=== PATIENT | female | born 1980 | race Caucasian/White ===

== ENCOUNTER 2020-02-22 00:25 | Outpatient (CLI) | payer OTHER, SELFPAY ==
[2020-02-22 21:19] LABS: SARS-CoV-2 RNA PCR Negative
== END 2020-02-22 00:26 | disposition home or self-care (01) ==
LOC: ANHCOVIDDT 00:25
PROVIDERS: Visit Provider Otolaryngology
DX: Z01.812 Encounter for preprocedural laboratory examination (principal); Z20.828 Contact with and (suspected) exposure to other viral communicable diseases
CPT/HCPCS: 87635; C9803; U0003

== ENCOUNTER 2020-02-25 01:18 | Day surgery (SDC) | payer OTHER, SELFPAY ==
[2020-02-20 09:53] VITALS: BMI 38.2
--- NOTE | 2020-02-24 06:25 | P.HP_ITS ---
History of Present Illness History of Present Illness Consent: Risks, benefits, and alternatives have been discussed and questions answered. Patient agrees to proceed with procedure. Chief complaint: Hypertrophic Tonsils Narrative: Jazmine Quevedo is a 39 year old female [facility] Social History Social History (Updated 02/10/20 @ 11:38 by Selam Glez [facility]) Smoking packs per day: 0.5 Smoking cigarettes per day: 10.0 Years smoked: 20 Smoking pack-years: 10.00 Smoking status: Current every day smoker Tobacco type: cigarettes Second hand tobacco smoke exposure: Yes Alcohol intake: never Substance use: current Substance use type: marijuana Other substance usage details: ONCE A MONTH Spiritual care concerns: No Meds Home Medications and Allergies Home Medications Medication Instructions Recorded Confirmed Type exenatide 10 mcg SUBCUT BID 02/10/20 02/20/20 History levothyroxine 88 mcg tablet 88 mcg PO DAILY 02/10/20 02/20/20 History omeprazole 10 mg capsule,delayed 10 mg PO DAILY 02/10/20 02/20/20 History release ondansetron HCl 4 mg tablet 4 mg PO PRN PRN 02/10/20 02/20/20 History Allergies Allergy/AdvReac Type Severity Reaction Status Date / Time No Known Allergies Allergy Verified 02/20/20 09:35 Exam HENMT: Other: tympanic membranes retracted with fluid nose mild negative serous otitis bilateral
--- NOTE | 2020-02-24 10:24 | WPDANESEPPF ---
Anes - Initial Pre Proc Eval Procedure: Operation Date: 02/25/20 10:00 Proposed Procedures p Tonsillectomy - Brock Groves MD Date/Time: 02/24/20 10:24 Surgeon: Brock Groves MD Pre Op Diagnosis: Hypertrophic Tonsils Patient Data Age: 39 Gender: F Height: 1.7 m Weight: 110.7 kg Allergies Allergy/AdvReac Type Severity Reaction Status Date / Time No Known Allergies Allergy Verified 02/25/20 08:03 Home Medications Medication Instructions Recorded Confirmed Type exenatide 10 mcg SUBCUT BID 02/10/20 02/25/20 History levothyroxine 88 mcg tablet 88 mcg PO DAILY 02/10/20 02/25/20 History omeprazole 10 mg capsule,delayed 10 mg PO DAILY 02/10/20 02/25/20 History release ondansetron HCl 4 mg tablet 4 mg PO PRN PRN 02/10/20 02/25/20 History Patient hx anesthesia problems: none Family hx anesthesia problems: none PMFSH Past Medical History Medical History (Updated 02/24/20 @ 10:36 by Joao Hayes DO) History of pancreatitis since 2009 has had 3x - several stents insterted/removed Hypothyroidism Surgical History Surgical History (Updated 02/24/20 @ 10:35 by Jaoo Hayes DO) History of tubal ligation Social History Social History (Updated 02/10/20 @ 11:38 by Selam Glez CMA) Smoking packs per day: 0.5 Smoking cigarettes per day: 10.0 Years smoked: 20 Smoking pack-years: 10.00 Smoking status: Current every day smoker Tobacco type: cigarettes Second hand tobacco smoke exposure: Yes Alcohol intake: never Substance use: current Substance use type: marijuana Other substance usage details: ONCE A MONTH Living arrangements: with family Spiritual care concerns: No Anes - Eval Final PreProcedure Day of Procedure 02/24/20 10:24 Patient weight: obese Heart: regular rate and rhythm Lungs: clear to auscultation and normal air movement Airway: Mallampati scale class II Neurological: alert and oriented Last oral intake: >/= 8 hours ASA classification: III Emergent: no Anesthetic plan: proceed Anesthesia type and monitoring: general ETT and standard monitoring Informed Consent: The patient's anesthetic plan and its attendant risks and benefits were discussed with the patient/family/POA. Questions were solicited and answers provided to the satisfaction of the patient/family/POA.
[2020-02-25] VITALS (9 sets, daily range): BP systolic 97–168; BP diastolic 47–99; PULSE 52–82; RESP 12–20; TEMP 36.3–36.6; O2SAT 93–100
--- NOTE | 2020-02-25 05:17 | PM.HPGS ---
History of Present Illness History of Present Illness Consent: Risks, benefits, and alternatives have been discussed and questions answered. Patient agrees to proceed with procedure. Chief complaint: Hypertrophic Tonsils Narrative: Jazmine Quevedo is a 39 year old female has a long history of chronic tonsillitis and enlarged tonsils she is to undergo a tonsillectomy Review of Systems Review of Systems: All systems reviewed & are unremarkable except as noted in HPI and below PMFSH Past Medical History Medical History (Updated 02/24/20 @ 10:36 by Joao Hayes DO) History of pancreatitis since 2009 has had 3x - several stents insterted/removed Hypothyroidism Surgical History Surgical History (Updated 02/24/20 @ 10:35 by Joao Hayes DO) History of tubal ligation Social History Social History (Updated 02/10/20 @ 11:38 by Selam Glez CMA) Smoking packs per day: 0.5 Smoking cigarettes per day: 10.0 Years smoked: 20 Smoking pack-years: 10.00 Smoking status: Current every day smoker Tobacco type: cigarettes Second hand tobacco smoke exposure: Yes Alcohol intake: never Substance use: current Substance use type: marijuana Other substance usage details: ONCE A MONTH Living arrangements: with family Spiritual care concerns: No Meds Home Medications and Allergies Home Medications Medication Instructions Recorded Confirmed Type exenatide 10 mcg SUBCUT BID 02/10/20 02/20/20 History levothyroxine 88 mcg tablet 88 mcg PO DAILY 02/10/20 02/20/20 History omeprazole 10 mg capsule,delayed 10 mg PO DAILY 02/10/20 02/20/20 History release ondansetron HCl 4 mg tablet 4 mg PO PRN PRN 02/10/20 02/20/20 History Allergies Allergy/AdvReac Type Severity Reaction Status Date / Time No Known Allergies Allergy Verified 02/20/20 09:35 Assessment and Plan Additional Plan Plan is a tonsillectomy
--- NOTE | 2020-02-25 05:39 | WPDHPUPDATE1 ---
History and Physical Update Update Date/Time: 02/25/20 05:39 History and Physical has been reviewed, including an updated exam of the patient. There are NO changes in the patient's condition. Risks, benefits, and alternatives have been discussed and questions answered. Patient agrees to proceed with procedure.
[2020-02-25] MEDS: LACTATED RINGERS 1,000 ML 30 ML IV CONT (08:31)
[2020-02-25] MEDS: ACETAMINOPHEN 500 MG TABLET 1000 MG PO (08:31)
--- NOTE | 2020-02-25 09:45 | PM.PROC ---
Procedure Note - Detailed Date of procedure: 02/25/20 Pre-op diagnosis: Hypertrophic Tonsils Post-op diagnosis: same Procedure performed: Tonsillectomy Description of procedure: Patient was prepped and draped in usual fashion after induction of anesthesia. The McIvor mouth gag was inserted. The tonsils were removed dissection technique hemostasis was obtained electrocautery. The mouth was inspected for bleeding. When stablized patient was awaken and brought to the recovery room in good condition. Anesthesia: GLMA Surgeon: Brock Groves MD Estimated blood loss (mL): 15 Drains: No Packing: No Pathology: none sent Complications: No immediate complications Condition: stable Disposition: PACU Findings: Chronic tonsils
[2020-02-25] MEDS: fentaNYL CITRATE INJ (*CRX) 100 MCG/2 ML VIAL 25 MCG IV PUSH ×8 (10:02→10:27)
[2020-02-25] MEDS: HYDROmorphone HCL INJ (*CRX) 1 MG/ML SYR 0.5 MG IV PUSH ×4 (10:33→11:26)
== END 2020-02-25 12:05 | disposition home or self-care (01) ==
PROVIDERS: Visit Provider Otolaryngology
PROC: (CPT 42826; principal; 2020-02-25 10:00)
DX: J35.01 Chronic tonsillitis (principal); E03.9 Hypothyroidism, unspecified; F17.210 Nicotine dependence, cigarettes, uncomplicated; E66.9 Obesity, unspecified; Z68.38 Body mass index [BMI] 38.0-38.9, adult
CPT/HCPCS: 42826; 88302; 88304; A9270; J0330; J1100; J1170; J2001; J2250; J2405; J2704; J3010; J7120

== ENCOUNTER 2023-01-12 00:20 | Day surgery (SDC) | payer OTHER, SELFPAY ==
[2023-01-03 14:18] VITALS: BMI 36.0
--- NOTE | 2023-01-03 14:25 | PC.NURSE ---
Report to the Outpatient Waiting Room, entrance under the green pavilion located off [facility], at time 0730 on date 01/12/23. Planned Procedure Time: 0930. Time changes happen often and if your time is changed the preop area will call you the afternoon before. - You and your visitor will be asked to self-screen and do not enter if you have any COVID symptoms. - A mask is optional within the hospital at this time. Patients may have clear liquids (water, carbonated beverages, clear teas, apple juice) until 3 hours prior to surgery with a maximum of 20 ounces. - No food from midnight until time of surgery Take the following medications with a SIP of water the morning of surgery: NONE DO NOT STOP ANY OF YOUR OTHER PRESCRIPTION MEDICATIONS PRIOR TO SURGERY ?EXCEPT THE FOLLOWING Medications to discontinue per physician: VITAMINS/SUPPLEMENTS Date to take last dose: 01/08/23 Please no make-up, nail tajik, hairspray, perfume, deodorant, or body powder the day of surgery. No jewelry (including any body piercings) or valuables the day of surgery, leave them at home. Please take a shower or bath the night before, or the morning of, surgery with an antibacterial soap. Wear comfortable, loose fitting clothing. - Jewelry must be removed prior to entering the operating room. Rings and piercings that are not removed may be cut off. - The hospital will not accept responsibility for valuables. - Please leave all valuables, including medications, at home the day of surgery. If you are going home after surgery, a licensed regional [employer] company driver must drive you home. - NO public transportation without another adult if you receive anesthesia. - We recommend that an adult stay with you for 24 hours following discharge. - We also recommend that you do not drive, make important decision, drink alcoholic beverages, or take any drugs that were not prescribed by your health care provider for at least 24 hours after your discharge time. Follow any additional instructions given to you from your surgeon. If you or anyone in your household have experienced Covid symptoms in the past week, please notify your surgeon or the nurse liaison at the phone number below for possible testing. Telephone instructions given to PT - TRISTAN PADILLA and asked if any additional questions and then verbalized understanding. Patient advised to call surgeon office or pre surgery nurse liaison [phone] if any additional questions.
--- NOTE | 2023-01-12 08:04 | WPDHPUPDATE1 ---
History and Physical Update Update Date/Time: 01/12/23 08:04 History and Physical has been reviewed, including an updated exam of the patient. There are NO changes in the patient's condition. Risks, benefits, and alternatives have been discussed and questions answered. Patient agrees to proceed with procedure.
[2023-01-12] MEDS: LACTATED RINGERS 1,000 ML 30 ML IV CONT (08:05)
[2023-01-12 08:11] VITALS: BP 119/72; PULSE 80; RESP 20; TEMP 36.2; O2SAT 97
--- NOTE | 2023-01-12 10:15 | P.PNAN_ITS ---
Anes - Initial Pre Proc Eval Procedure: Operation Date: 01/12/23 09:30 Proposed Procedures p Left Open Carpal Tunnel Release - Asif Ying MD Date/Time: 01/12/23 10:15 Surgeon: Asif Ying MD Pre Op Diagnosis: left carpal tunnel syndrome Patient Data Age: 42 Gender: F Height: 1.7 m Weight: 109.2 kg Last Vital Signs Temp 97.1 F L 01/12/23 08:11 Pulse 80 01/12/23 08:11 Resp 20 01/12/23 08:11 BP 119/72 01/12/23 08:11 Pulse Ox 97 01/12/23 08:11 O2 Del Method Room Air 01/12/23 08:11 Allergies Allergy/AdvReac Type Severity Reaction Status Date / Time No Known Allergies Allergy Verified 01/12/23 07:51 Home Medications Medication Instructions Recorded Confirmed Type cholecalciferol (vitamin D3) 125 125 mcg PO DAILY 01/03/23 01/03/23 History mcg (5,000 unit) tablet (Vitamin D3) multivitamin with minerals 1 tablet PO DAILY 01/03/23 01/03/23 History (Hair,Skin and Nails tablet) omeprazole 20 mg capsule,delayed 20 mg PO DAILY 01/03/23 01/03/23 History release Patient hx anesthesia problems: none Family hx anesthesia problems: none Results Review: All pre-operative results and documents have been reviewed as part of the pre- operative evaluation. [facility] Past Medical History Medical History (System 03/17/20 @ 09:14 by Yu Blum) History of pancreatitis since 2009 has had 3x - several stents insterted/removed Hypothyroidism Surgical History Surgical History (System 03/17/20 @ 09:14 by Yu Blum) History of tubal ligation Social History Social History (System 03/17/20 @ 09:14 by Yu Blum) Smoking packs per day: 1 Smoking cigarettes per day: 20.0 Years smoked: 20 Smoking pack-years: 20.00 Smoking status: Current every day smoker Tobacco type: cigarettes and e-cigarettes/vaping Second hand tobacco smoke exposure: Yes Additional smoking assessment comments: QUIT CIGARETTES 2018, NOW VAPING Alcohol intake: current Alcohol use details: 2-3/YEAR Substance use: current Substance use type: marijuana Other substance usage details: ONCE A MONTH Living arrangements: with family Spiritual care concerns: No Anes - Eval Final PreProcedure Day of Procedure 01/12/23 10:15 Patient weight: obese Heart: regular rate and rhythm Lungs: clear to auscultation Airway: Mallampati scale class II Neurological: alert and oriented Last oral intake: >/= 8 hours ASA classification: II Emergent: no Anesthetic plan: proceed Anesthesia type and monitoring: general GIVS and standard monitoring Results Review: All pre-operative results and documents have been reviewed as part of the pre- operative evaluation. Informed Consent: The patient's anesthetic plan and its attendant risks and benefits were discussed with the patient/family/POA. Questions were solicited and answers provided to the satisfaction of the patient/family/POA.
[2023-01-12] MEDS: LIDO 1%/EPINEPHRINE 1:100,000 20 ML VIAL 5 ML INFILTRATE (11:01)
[2023-01-12 11:15] VITALS: BP 91/59; PULSE 86; RESP 14; O2SAT 96
--- NOTE | 2023-01-12 11:22 | W.PM.PROC2 ---
Procedure Note - Detailed Date of Procedure 01/12/23 Pre-op Diagnosis left carpal tunnel syndrome Post-op Diagnosis Same Procedure Performed Left open carpal tunnel release Surgeon Asif Ying MD [employer] Supervisor [facility] Anesthesia [facility] [place] Description of Procedure The left carpal tunnel was marked on the patient's heel and with her consent in preop. He was taken to the operating room and placed supine on the operating table. She was given IV sedation. The extremity was prepped and draped in usual fashion. The site was remarked and locally infiltrated with 1% lidocaine with epinephrine. The extremity was exsanguinated and the tourniquet was inflated to 250 mm mercury. The incision was made as marked. Blunt dissection revealed the palmar fascia. This and the transverse retinacular ligament were very easily incised with a 15 blade. Under 3 point retraction the ligament was divided distally and proximally for complete release. There was no unusual anatomy noted. The skin was closed with interrupted 5 0 nylon. The usual bandage was applied. The tourniquet was released. She is discharged from the operating room in stable condition. She is discharged with instructions in wound care and follow-up and has a prescription for hydrocodone 5/325 number 5 Estimated Blood Loss 1 Tourniquet Time 7 Packing No Pathology None sent Condition Stable Disposition Same day
[2023-01-12 11:45] VITALS: BP 110/64; PULSE 70; RESP 14
[2023-01-12 12:10] VITALS: BP 125/84; PULSE 65; RESP 14
== END 2023-01-12 12:20 | disposition home or self-care (01) ==
PROVIDERS: Visit Provider Plastic Surgery
PROC: (CPT 64721; principal; 2023-01-12 09:30)
DX: G56.02 Carpal tunnel syndrome, left upper limb (principal); F17.290 Nicotine dependence, other tobacco product, uncomplicated; E66.9 Obesity, unspecified; Z68.37 Body mass index [BMI] 37.0-37.9, adult
CPT/HCPCS: 64721; A9270; J2250; J2704; J3010; J7120